=== PATIENT | female | born 1950 | race Asian ===

== ENCOUNTER → 2017-07-27 | Outpatient (CLI) | payer OTHER ==
[~2017-07-27] MED LIST: EZET1TAB30 PO; MELO7.5T31 PO; OLME1TAB22 PO; OMEP40CA6 PO; VIT1CAPS44 PO; VITAMIN E PO
== END | disposition home or self-care (01) ==
LOC: CFH 09:41
PROVIDERS: ATTEND Family Medicine
DX: K44.9 Diaphragmatic hernia without obstruction or gangrene (principal)
CPT/HCPCS: 71046

== ENCOUNTER → 2018-03-03 | Outpatient (CLI) | payer OTHER | END | disposition home or self-care (01) | LOC: CFH 09:53 | PROVIDERS: ATTEND Family Medicine | DX: Z12.31 Encounter for screening mammogram for malignant neoplasm of breast (principal) | CPT/HCPCS: 77067 ==